=== PATIENT | female | born 1945 | race Caucasian/White ===

== ENCOUNTER 2016-11-07 10:59 | Outpatient (RCR) | payer MEDICARE ==
[~2016-11-07 10:59] MED LIST: AMITRIPTYLINE H25 M1 PO; ASPIRIN E.C. 8181 MG PO; CENTRUM SILVER1 CTB PO; CITRACAL ECONO200 MG PO; CLARITIN 1010 MG/TAB PO; DETROL LA4 PO; EFFEXOR 75M75 MG/TAB PO; FOSAMAX 70MG TA70 MG PO; IBU600 MG PO; MACROBID 1100 MG/CAP PO; MESTINON 6060 MG/TAB PO; MOBIC15 MG PO; NORCO 325 MG-7.1 TAB PO; PRAVACHOL 40MG40 MG PO; PYRIDIUM200 M1 PO; SINGULAIR 5M5 MG/TAB PO
== END 2017-02-05 | disposition home or self-care (01) ==
LOC: WSST
DX: J38.3 Other diseases of vocal cords (principal)
CPT/HCPCS: G9171-GN; G9172-GN

== ENCOUNTER 2017-04-15 13:20 | Outpatient (RCR) | payer MEDICARE | END 2017-07-14 | disposition still patient (30) | LOC: WSST | DX: M48.00 Spinal stenosis, site unspecified (principal); M43.10 Spondylolisthesis, site unspecified ==

== ENCOUNTER 2017-07-11 09:45 | Outpatient (RCR) | payer MEDICARE | END 2017-07-14 | disposition home or self-care (01) | LOC: WSPT | DX: M48.061 Spinal stenosis, lumbar region without neurogenic claudication (principal); Z98.1 Arthrodesis status ==

== ENCOUNTER 2017-08-14 09:45 | Outpatient (RCR) | payer MEDICARE | END 2017-10-13 | disposition home or self-care (01) | LOC: WSPT | DX: M54.5 Low back pain (principal); M48.00 Spinal stenosis, site unspecified ==